=== PATIENT | male | born 1955 | race African-American/Black ===

== ENCOUNTER → 2019-12-14 | Outpatient (CLI) | payer MEDICARE, OTHER ==
[~2019-12-14] MED LIST: ALLO100T PO; ATOR40TA59 PO; FINA5TAB4 PO; FLUT9.9S NS; HYDR-2765 PO; LISI1TAB37 PO; METF500T16 PO; TAMS0.4C97 PO
[2019-12-14 11:15] LABS: BASO # 0.1 x10^3/uL (0.0-0.2); BASO % 1 % (0-3); EOS # 0.1 x10^3/uL (0.0-0.7); EOS % 2 % (0-3); HEMATOCRIT 43.5 % (39.0-53.0); HEMOGLOBIN 14.6 g/dL (13.0-17.5); LYMPH # 2.8 x10^3/uL (1.0-4.8); LYMPH % 38 % (24-48); MEAN CORPUSCULAR HEMOGLOBIN 32 pg (25-35); MEAN CORPUSCULAR HGB CONC 34 g/dL (31-37); MEAN CORPUSCULAR VOLUME 95 fL (79-100); MONO # 0.6 x10^3/uL (0.0-1.1); MONO % 8 % (0-9); NEUT # 3.7 x10^3/uL (1.8-7.7); NEUT % 51 % (31-73); PLATELET COUNT 221 x10^3/uL (140-400); RED BLOOD COUNT 4.58 x10^6/uL (4.30-5.70); RED CELL DISTRIBUTION WIDTH 13.2 % (11.5-14.5); WHITE BLOOD COUNT 7.3 x10^3/uL (4.0-11.0)
[2019-12-14 11:23] LABS: PROTHROMBIN TIME PATIENT 12.5 SEC (11.7-14.0)
[2019-12-14 11:35] LABS: ALBUMIN 3.8 g/dL (3.4-5.0); CALCIUM 8.9 mg/dL (8.5-10.1); CREATININE 1.3 mg/dL (0.7-1.3); GFR 66.8; POTASSIUM 4.3 mmol/L (3.5-5.1); TOTAL BILIRUBIN 0.9 mg/dL (0.2-1.0); TOTAL PROTEIN 7.5 g/dL (6.4-8.2)
== END ==
LOC: LAB 10:18
PROVIDERS: ATTEND Specialist
DX: Z01.818 Encounter for other preprocedural examination (principal); Z11.59 Encounter for screening for other viral diseases; R22.1 Localized swelling, mass and lump, neck; I10 Essential (primary) hypertension; E78.00 Pure hypercholesterolemia, unspecified; Z79.899 Other long term (current) drug therapy
CPT/HCPCS: 80053; 85025; 85610; C9803; U0003

== ENCOUNTER 2019-12-19 08:53 | Day surgery (SDC) | payer MEDICARE ==
[~2019-12-19] VITALS: Ht 182.9 cm; Wt 106.1 kg
--- NOTE | 2019-12-19 06:48 | PREOP HP ---
DATE OF SERVICE: HISTORY OF PRESENT ILLNESS: The patient is referred by Dr. Renan Genao because of a mass of the scalp and also the upper back and lower neck. Apparently, he has had these lesions since about 2004 and had the scalp lesion removed, he states about 10 years ago. It came back and he wishes to have both removed now. PAST MEDICAL HISTORY: Shows he does have hypertension for which he takes lisinopril and also has gout for which he takes allopurinol and takes medicine also to lower his cholesterol. PAST SURGICAL HISTORY: Included removal of a mass of the occiput of the scalp. ALLERGIES: He does not have any allergies. SOCIAL HISTORY: Does not smoke, drinks only socially and not enough to get inebriated and does not use illicit drugs. FAMILY HISTORY: Noncontributory. REVIEW OF SYSTEMS: Negative except for the fact not mentioned before, he did have apparently neck injury and had fusion of C4, C5 and C6. PHYSICAL EXAMINATION: GENERAL: Shows an alert male, in no acute distress. HEAD, EYES, EARS, NOSE AND THROAT: Grossly normal. CHEST: Clear bilaterally to auscultation. HEART: Had no murmurs, heaves, friction rubs, or thrill and rate was 74 beats per minute and regular. ABDOMEN: Not examined. EXTREMITIES: Grossly normal. EXAMINATION OF THE OCCIPUT: Shows right in the middle of the occiput of the scalp about a 3-4 cm mass, it appeared to be minimally movable and not attached to underlying structures, could not tell if there was a pore there but it definitely is a mass there. NECK: He could turn, but at the nuchal area just to the left of the midline was a mass. This was about 8-10 cm in size. It did not appear to be attached to underlying structures. He states it has been getting larger and wishes to have it removed as this continues to grow. IMPRESSION: 1. Hypertension. 2. Hypercholesterolemia. 3. Gout. 4. Tumor scalp. 5. Soft tissue tumor in upper back/nuchal area of the neck. PLAN: Per his request is to have the lesions removed and we will do these under general anesthesia because of the size. VIV HERNANDEZ MD DR: BETO/john JOB#: [id number] / [id number]
[~2019-12-19 08:53] MED LIST changes: +DEXAMETHASONE SOD PHOS 4 MG/ML VIAL ONE; -HYDR-2765 PO; +HYDROmorphone 2 MG/ML VIAL ONE; +INSULIN LISPRO 100 UNIT/ML 3ML VIAL for OP,RR ONLY. SQ PRN; +KETOROLAC 30 MG/ML VIAL. ONE; +LISI1TAB19 PO; -LISI1TAB37 PO; +MIDAZOLAM HCL/PF 2 MG/2 ML VIAL. ONE; +ONDANSETRON PF 4 MG/2 ML VIAL. ONE; +ROCURONIUM 50 MG/5 ML VIAL. ONE; +fentaNYL PF VIAL 250 MCG/5 ML VIAL ONE
[2019-12-19] MEDS ORDERED: IV RINGERS,LACTATED 1000ML 1,000 ML IV SCH (09:30)
[2019-12-19] MEDS ORDERED: BUPIVACAINE-EPI 0.5%-1:200000 MPF 30 ML VIAL. ONE (10:29)
--- NOTE | 2019-12-19 10:50 | PDOC ---
SURGICAL PROGRESS NOTE Subjective No change i dictated H&P Vital Signs Vital Signs Date Time Temp Pulse Resp B/P (MAP) Pulse Ox O2 Delivery O2 Flow Rate FiO2 12/19/19 09:15 97.0 67 20 151/103 98 Room Air 97.0 Labs Laboratory Tests Test 12/19/19 09:21 Glucose (Fingerstick) 103 mg/dL (70-99) Laboratory Tests Test 12/19/19 09:21 Glucose (Fingerstick) 103 mg/dL (70-99) Justicifation of Admission Dx: Justifications for Admission: Justification of Admission Dx: VIV Teixeira MD Dec 19, 2019 10:50
--- NOTE | 2019-12-19 10:53 | PDOC ---
SURGICAL PROGRESS NOTE Subjective Op Note: Surgeon................................................Chaparro Pre op diag...........................................Mass of upper back left of midline and mass scap occiput Post op dig...........................................same Anesthesia...........................................general: Procedure............................................excision mass back and scalp Drains.................................................none Blood loss...........................................25cc Fluids.................................................see anesthesia sheet Condition............................................satisfactory Vital Signs Vital Signs Date Time Temp Pulse Resp B/P (MAP) Pulse Ox O2 Delivery O2 Flow Rate FiO2 12/19/19 09:15 97.0 67 20 151/103 98 Room Air 97.0 Labs Laboratory Tests Test 12/19/19 09:21 Glucose (Fingerstick) 103 mg/dL (70-99) Laboratory Tests Test 12/19/19 09:21 Glucose (Fingerstick) 103 mg/dL (70-99) Justicifation of Admission Dx: Justifications for Admission: Justification of Admission Dx: No VIV HERNANDEZ MD Dec 19, 2019 10:52
[2019-12-19] MEDS ORDERED: PHENYLEPHRINE in 0.9% NACL PF 1 MG/10 ML SYRINGE. IV ONE (11:25)
[2019-12-19] MEDS ORDERED: NEOSTIGMINE 10 MG/10 ML VIAL. ONE (13:05)
--- NOTE | 2019-12-19 13:34 | DISCH ---
DISCHARGE INSTRUCTIONS Condition on Discharge Condition on Discharge: Stable Activity After Discharge Activity Instructions for Disc: Avoid exertion Diet after Discharge Diet after Discharge: Clear Liquid Wound Incision Care Wound/Incision Care: Other, see below Other wound/incision instructi: leave dressing on an dchange i 2-3 days or prn Follow-Up Follow up with: call and make appyt to see me in 1 week VIV HERNANDEZ MD Dec 19, 2019 13:34
[2019-12-19] MEDS ORDERED: HYDR-2765 PO (13:48)
[2019-12-19 14:30] VITALS: BP 126/68
--- NOTE | 2019-12-20 17:06 | PATHOLOGY ---
[facility] Accession Number: [id number] . 01 Material submitted: . PART A: back - BACK MASS PART B: head - MASS OF THE HEAD . 01 Clinical history: . Soft tissue tumor . 02 Diagnosis: A. Segments of fibroadipose tissue, back mass: - Lipoma. . B. Segment of fibroadipose tissue, mass of head: - Lipoma. (JPM:[facility]; 12/20/2019) S 12/20/2019 1354 Local . 02 Electronically signed: . Jaun Nava MD, Pathologist NPI- [id number] . 01 Gross description: . A. The specimen is received in formalin, labeled "Rusty Roth, back mass". Received are multiple segments of yellow-abad lobulated tissue measuring 7.7 x 6.8 x 3.9 cm in aggregate dimensions. Sectioning reveals bright yellow cut surfaces with no grossly distinct nodules or lesions. The specimen is submitted representatively in cassette A1 and A2. . B. The specimen is received in formalin, labeled "Rusty Roth, mass of the head". Received is a segment of yellow-abad fibroadipose tissue measuring 2.3 x 1.5 x 1.0 cm in greatest dimensions. Sectioning reveals yellow-abad to pink-abad cut surfaces with no grossly distinct nodules or lesions. The specimen is submitted representatively in cassette B1. ([facility]; 12/19/2019) QA/QA 12/20/2019 1353 Local . 02 Pathologist provided ICD-10: D17.1, D17.0 . 02 CPT . 134732, [id number] Specimen Comment: A courtesy copy of this report has been sent to [phone], [phone] Specimen Comment: [id number] Specimen Comment: Report sent to / DR EVANS Performed at: [address] [facility] [address], [place], [place] [id number] MD Jere Maza MD Phone: [phone] Performed at: 02 [facility] [address] [place], [place] [id number] MD Jaun Nava MD Phone: [phone]
--- NOTE | 2019-12-21 12:18 | OP ---
DATE OF SURGERY: 12/19/2019 SURGEON: Garcia Hernandez MD. PREOPERATIVE DIAGNOSES: Large mass, left upper back, just below the neck and a mass of the occiput of the scalp. POSTOPERATIVE DIAGNOSES: Large mass, left upper back, just below the neck and a mass of the occiput of the scalp. ANESTHESIA: General. PROCEDURE: Excision of large mass, left upper back and excision of a 3-4 cm mass of the occiput of the scalp in the midline. TECHNIQUE: Under general anesthesia, the patient was placed in the prone position, face down, with appropriate measures taken to make certain position was proper. We did the shoulder or upper back lesion first, which was just to the left of the midline below the neck. We made a transverse incision with a 15 blade down through the skin. This incision was large as the mass was probably 8-10 cm in size. The incision was carried down through the skin. We got into the subcutaneous. This was fatty tissue, but not the mass. We slowly went down with Metzenbaum scissors and divided the capsule over the mass and could see that it was yellowish in color. We then had to expand the incision both laterally and medially and we were able to get our finger under this capsule. We took the mass out totally by slowly dividing it from the surrounding structures using Metzenbaum scissors and finger dissection. There were many finger-like projections going into the fatty tissue and these were taken down and some of the septa had to be divided and we removed all of this mass. We slowly removed it using cautery for hemostasis at various times. The mass was slowly removed from all the low septa that it had gone into and was sent to pathology. We inspected the area. There was no further evidence of any mass there, tumor or other abnormalities as it had been completely removed. It should be noted that the mass in fact went down to and below the fascia as we had to take some of it off. We then closed the fascia as best we could with 2-0 and 3-0 Vicryl and slowly approximated the deeper tissues with 3-0 Vicryl and the more superficial tissues with interrupted 4-0 Vicryl. The skin was closed using 4-0 nylon interrupted sutures. The procedure was terminated and a sterile dressing applied. Next, the scalp lesion was addressed. It was in the midline over the occiput and we made a transverse incision and carried this down and it was interesting that we could not feel it in the subcutaneous. We divided the capsule and down on the bone was the mass. We slowly used Metzenbaum scissors to remove the mass totally as it was in fact down on the bone. The mass was yellowish in color and was about 3-4 cm in size. It was totally removed and sent to pathology. The resultant defect was approximated using 4-0 Vicryl to approximate the deeper structures and 4-0 nylon to close the skin. The procedure was terminated. A sterile dressing was applied. The blood loss total was probably less than 20 mL. Fluids given can be obtained from the anesthesia sheet. No drains were used and the condition of the patient was satisfactory as he has returned to the recovery room. GARCIA HERNANDEZ MD DR: BETO/john JOB#: [id number] / [id number]
== END 2019-12-19 15:09 | disposition home or self-care (01) ==
LOC: SURG 08:53 → EDUNIT# 10:15 → SURG 15:09
PROVIDERS: ATTEND Specialist
DX: R22.0 Localized swelling, mass and lump, head (principal); D17.0 Benign lipomatous neoplasm of skin and subcutaneous tissue of head, face and neck; D17.1 Benign lipomatous neoplasm of skin and subcutaneous tissue of trunk; I10 Essential (primary) hypertension; M10.9 Gout, unspecified; E78.00 Pure hypercholesterolemia, unspecified; Z79.899 Other long term (current) drug therapy
CPT/HCPCS: 11424; 21014; 82962; 88304; A7015; J1100; J1170; J1885; J2250; J2370; J2405; J2710; J3010; J3490